=== PATIENT | female | born 1990 | race American Indian/Alaskan Native ===

== ENCOUNTER 2021-10-25 17:28 | Emergency (ER) | payer SELFPAY ==
[2021-10-25 17:36] VITALS: BP 110/56
== END 2021-10-25 20:30 | disposition left against medical advice (07) ==
LOC: ED 17:28
DX: M25.551 Pain in right hip (principal); Z53.21 Procedure and treatment not carried out due to patient leaving prior to being seen by health care provider; W19.XXXA Unspecified fall, initial encounter; Y93.89 Activity, other specified; Y92.89 Other specified places as the place of occurrence of the external cause; Y99.8 Other external cause status